=== PATIENT | female | born 1990 | race Caucasian/White ===

== ENCOUNTER → 2016-08-10 | Outpatient (CLI) | payer OTHER ==
[~2016-08-10] MED LIST: ACET50TA PO; ANUS2.5C2 TOP; COLA100C3 PO; GAVICHW PO; IBUP-1114 PO; MOM30SS PO; MULTIVIT OR; NASONEX; PERC7.5T12 PO; PREV15CA OR; TIGA300C OR; VICO5TAB OR; ZOFR4SOL PO; elestat OU
--- NOTE | 2016-08-10 19:16 | REP ---
MRI LEFT KNEE: TECHNIQUE: Axial proton density fat saturation, sagittal proton density T2 STIR, water excitation, coronal proton density, proton density fat saturation. The menisci appear intact. There is a high grade tear of the reconstructed anterior cruciate ligament. There is increased signal on T2-weighted images extending through virtually the entire thickness of that structure near the entrance into the femoral tunnel. The posterior cruciate ligament is intact. The collateral ligaments are intact. The medial and lateral patellar retinacula are intact. There are surgical screws in the medial femoral condyle and medial patellar facet. No osteochondral defect is seen. There is no bone marrow edema or occult fracture. There is a small joint effusion. There is no popliteal cyst. IMPRESSION: High grade tear of the reconstructed anterior cruciate ligament. Menisci are intact. Small joint effusion. Signed by Livan Booth MD 08/10/2016 07:50 P
== END ==
LOC: M RAD 16:34
PROVIDERS: ATTEND Physician Assistant Surgical
DX: M17.12 Unilateral primary osteoarthritis, left knee (principal); M25.462 Effusion, left knee

== ENCOUNTER 2016-08-23 07:45 | Outpatient (RCR) | payer OTHER ==
[~2016-08-23 07:45] MED LIST changes: -COLA100C3 PO; +COLA100C5 PO
[2016-11-18] MEDS ORDERED: MIREIUD IU (07:50)
== END 2016-08-26 ==
LOC: M PT 07:45
PROVIDERS: ATTEND Physician Assistant Surgical
DX: Z51.89 Encounter for other specified aftercare (principal); M17.12 Unilateral primary osteoarthritis, left knee

== ENCOUNTER → 2016-09-26 | Outpatient (RCR) | payer OTHER ==
[~2016-09-26] MED LIST changes: +MIREIUD IU
== END ==
LOC: M PT 09-01 08:44
PROVIDERS: ATTEND Physician Assistant Surgical
DX: Z51.89 Encounter for other specified aftercare (principal); M17.12 Unilateral primary osteoarthritis, left knee

== ENCOUNTER 2016-10-13 08:10 | Outpatient (RCR) | payer OTHER ==
[~2016-10-13 08:10] MED LIST changes: -MIREIUD IU
[2016-11-18] MEDS ORDERED: MIREIUD IU (07:50)
== END 2016-10-27 ==
LOC: M PT 08:10
PROVIDERS: ATTEND Physician Assistant Surgical
DX: Z51.89 Encounter for other specified aftercare (principal); M17.12 Unilateral primary osteoarthritis, left knee

== ENCOUNTER 2016-12-02 06:31 | Day surgery (SDC) | payer OTHER ==
[~2016-12-02] VITALS: Ht 162.6 cm; Wt 77.1 kg
[~2016-12-02 06:31] MED LIST changes: +MIREIUD IU
[2016-12-02] MEDS ORDERED: LR 1,000 ML IV ONE (06:45)
[2016-12-02] MEDS ORDERED: LIDOCAINE 1% MDV 20ML VIAL As Ordered ONE (06:50)
[2016-12-02] MEDS ORDERED: MIDAZOLAM INJ 2 MG/2 ML VIAL (J2250) As Ordered ONE (07:08)
[2016-12-02] MEDS ORDERED: ROCURONIUM BROMIDE 50 MG/5 ML VIAL/SYRINGE As Ordered ONE (07:08)
[2016-12-02] MEDS ORDERED: KETOROLAC 60 MG/2 ML VIAL (J1885) As Ordered ONE (07:08)
[2016-12-02] MEDS ORDERED: PROPOFOL 200 MG/20 ML VIAL As Ordered ONE (07:08)
[2016-12-02] MEDS ORDERED: ONDANSETRON 4MG/2ML VIAL (J2405) As Ordered ONE ×2 (07:08→11:45)
[2016-12-02] MEDS ORDERED: dexameTHASONE 4 MG/ML 1ML VIAL (J1100) As Ordered ONE (07:08)
[2016-12-02] MEDS ORDERED: fentaNYL 100 MCG/2 ML INJECTION (J3010) As Ordered ONE (07:08)
[2016-12-02] MEDS ORDERED: ceFAZolin 1GM INJ (J0690) As Ordered ONE (07:18)
[2016-12-02] MEDS ORDERED: ROPIvacaine 0.5% 30 ML INJECTION (J2795) As Ordered ONE (07:18)
[2016-12-02] MEDS ORDERED: HYDROmorphone HCL 2 MG/ML 1ML VIAL (J1170) As Ordered ONE (08:25)
[2016-12-02] MEDS: PERCOCET 5MG/325MG TAB PO PRN ×2 (11:20→12:00)
[2016-12-02] MEDS ORDERED: PERCOCET 5MG/325MG TAB As Ordered ONE (11:25)
[2016-12-02] MEDS ORDERED: fentaNYL 100 MCG/2 ML INJECTION (J3010) IV PRN (12:00)
[2016-12-02] MEDS ORDERED: ONDANSETRON 4MG/2ML VIAL (J2405) IV PRN (12:00)
[2016-12-02] MEDS ORDERED: METOCLOPRAMIDE INJ 10MG/2ML VIAL (J2765) IV PRN (12:00)
[2016-12-02] MEDS ORDERED: LR 1,000 ML IV SCH (12:00)
[2016-12-02 13:40] VITALS: BP 97/51
--- NOTE | 2016-12-02 22:27 | RO ---
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 POSTPROCEDURE DIAGNOSES: Recurrent anterior cruciate ligament (ACL) ligament tear. Bucket handle lateral meniscus tear. OPERATIVE PROCEDURE: 1. Left knee revision, ACL reconstruction using a posterior tibial Allograft and a tightrope device with an 11 mm Bioscrew on the tibia with 9 mm femoral tunnel and a 10 mm tibial tunnel. 2. Left knee lateral meniscal repair using three Riddle Nephew FAST-FIX sutures. SURGEON: Effie Moreno MD CAR CONDITIONER: Amado aJra ANESTHESIA: General endotracheal tube anesthesia. COMPLICATIONS: None. FINDINGS: She had a grossly lax left knee with a positive pivot shift, positive Erika, full range of motion. Patellofemoral joint was stable. ESTIMATED BLOOD LOSS: DESCRIPTION OF PROCEDURE: Antibiotics were given intravenously preoperatively and a successful general endotracheal tube anesthetic was established. A tourniquet was placed on the left upper thigh and not inflated. The left lower extremity was carefully prepped and draped in the usual sterile fashion. Then after appropriate time out, the leg was elevated and the tourniquet was inflated. Insufflation portal was established superior and medially, scope was introduced anterolaterally, the working port was anteromedially. We introduced the arthroscope to explore the joint. The articular cartilage surfaces were found to be quite pristine. ACL graft was ruptured. Medial meniscus was not torn. The lateral meniscus, however, unstable large bucket handle tear. It was back to the rim. It was close to the white-white, but possibly white-red junction so I thought given her young age, it was worth an attempt at repair. Thus, at this point I debrided the bucket handle and then switched our visualization portal from anterolateral to anteromedial and had to redirect our anterolateral portal to allow direct access and angle of attack to the meniscal repair device insertion. I first attempted to use the Arthrex device. Three of those failed in terms of getting the sutures all tangled and they would not hold. Thus I resorted to using the Riddle Nephew FAST-FIX and I used three of those and they each worked. I placed posteriorly, one just posterior to the popliteal tendon and then one just lateral to the popliteal tendon using the two pass vertical mattress technique, first passing through the meniscus and the second passed through the capsule and then each suture was cinched down and the suture was cut. The meniscus was probed and found to be nice and secure. Photographs were taken. I then debrided the remnant of the anterior cruciate ligament. Then once that had been done, I made a small longitudinal incision laterally over the previous scar and dissected down to the tensor fascia. The tensor fascia was then divided and then I subperiosteally dissected around the lateral aspect of the femur to get good visualization and I did not find the old button, that is the tightrope button. After attempting to find it fairly diligently, but I did not want to dissect any further so at this point, the over the top femoral guide was placed and we changed are visualization portal to the anteromedial once again and had excellent visualization of the prior tunnel and placed the point of the over the top guided over the top of the tunnel and then the drill sleeve was placed over the lateral femoral cortex. It should be noteworthy that while I was doing this work on the femoral side, my construction administrative assistant, Mr. Amado Jara was working on the posterior tibial tendon Allograft which we obtained from the freezer and thawed on the back table under sterile saline soaked in antibiotics, then whipstitched either end of the tendon and the folded over construct fit snuggly through an 8.5, but easily through a 9, thus we elected to use a 9 mm on the femoral side. The previous tunnel was 8 mm. Once the FlipCutter came out in good position, I retroreamed to about a depth of 25 mm. The FiberStick was passed down the tunnel and then grafted out to the anterolateral portal. At this point, then I opened up the previous incision on the anteromedial surface of the proximal tibia and dissected down such that I could find the old graft bolt device and the old screw was removed with a screwdriver and then the graft bolt was removed in pieces with the rongeur after using the [place] elevator to try to remove it from the bone. Not all of it could be removed with this technique, thus I passed the guidepin up the tunnel, visualized it intra-articularly with arthroscope and then first used the coring reamer to break through and then used a sequential increased our diameter with the solid reamers from 8 to 9, up to 10 mm to eventually all of the plastic pieces removed. Had good bleeding bone in the tunnel. I copiously irrigated out the knee joint and used the shaver to remove any excess debris. Then I grabbed the passing sutures and passed them down through the anteromedial tunnel and then on the back table we loaded the tightrope device onto the posterior tibial Allograft. Then, the passing sutures were passed through the loop and pulled up into the knee and out through the lateral femoral cortex. Then, under direct visualization, the tightrope button was brought out and then flipped and pulled back with excellent purchase and then I advanced the graft with the white passing sutures up into the knee. Once it was secured, we cycled the knee in flexion and extension, and the graft appeared to be in good position. There was no impingement with extension. She actually hyperextended because of gross ligamentous laxity, but the graft felt to be reasonably isymmetric, thus I held the knee at about 20 degrees of flexion with a firm downward pressure on the proximal tibia for a posterior drawer applied and then we advanced an 11 x 28 Bioscrew up the tibial tunnel. Initially we were going to use a 10, but that had outdated and we had no choice but to use an 11. The 11 actually had excellent secure fixation of the graft and this eliminated her Erika and no longer she had a pivot shift. She had full flexion and extension on the table. The graft was nice and taut, symmetrically in both flexion and extension. Thus, I cut the ends of the graft short, closed the deep fascia over the screw, and then we let the tourniquet down at this point. Laterally I secured the tightrope with several backup sutures and then pulled the passing blue suture and then cut the limbs short. The tensor fascia was closed with interrupted 20 PDS sutures, subdermal tissues were closed in both wounds with interrupted #2-0 PDS sutures, skin was closed with mere, covered by Adaptic, dry sterile bulky dressing after ropivacaine had been placed. She was placed into her brace and then awakened from general endotracheal anesthesia after having tolerated the procedure well, transferred to the recovery room in stable condition. There were no intraoperative complications. She was then transferred to the recovery room in stable condition. There were no intraoperative complications. Mr. Amado Jara was critical to the success of this difficult revision surgery by helping to hold the knee in certain positions so I could perform a meniscus repair as well as pass the grafts and secure the graft appropriately, helped prepare the graft on the back table amongst many other tasks.
== END 2016-12-02 13:50 | disposition home or self-care (01) ==
LOC: M SDC 06:31
PROVIDERS: ATTEND Orthopaedic Surgery
DX: S83.512A Sprain of anterior cruciate ligament of left knee, initial encounter (principal); M17.12 Unilateral primary osteoarthritis, left knee; X58.XXXA Exposure to other specified factors, initial encounter; Y92.89 Other specified places as the place of occurrence of the external cause; Y99.9 Unspecified external cause status; Y93.9 Activity, unspecified; K21.9 Gastro-esophageal reflux disease without esophagitis; F41.9 Anxiety disorder, unspecified; F32.9 Major depressive disorder, single episode, unspecified
CPT/HCPCS: 29882; 29888; C1713; C1762; J0690; J1100; J1170; J1885; J2250; J2405; J2765; J2795; J3010

== ENCOUNTER 2017-01-25 14:30 | Outpatient (RCR) | payer OTHER, MEDICAID | END 2017-01-26 | LOC: M PT 14:30 | PROVIDERS: ATTEND Orthopaedic Surgery | DX: Z51.89 Encounter for other specified aftercare (principal); Z98.890 Other specified postprocedural states ==

== ENCOUNTER 2017-01-31 13:38 | Outpatient (RCR) | payer OTHER, MEDICAID | END 2017-02-26 | LOC: M PT 13:38 | DX: S83.512D Sprain of anterior cruciate ligament of left knee, subsequent encounter (principal) | CPT/HCPCS: 97110 ==

== ENCOUNTER 2017-02-28 11:36 | Outpatient (RCR) | payer OTHER, MEDICAID | END 2017-03-29 | LOC: M PT 11:36 | DX: Z51.89 Encounter for other specified aftercare (principal); Z98.890 Other specified postprocedural states | CPT/HCPCS: 97110 ==

== ENCOUNTER → 2017-06-15 | Outpatient (REF) | payer OTHER ==
[2017-06-15 13:16] LABS: CHLORIDE LEVEL 104 MEQ/L (98-107); POTASSIUM SERUM 4.3 MEQ/L (3.5-5.1); SODIUM LEVEL 140 MEQ/L (136-145)
[2017-06-15 13:42] LABS: ALBUMIN 4.4 GM/DL (3.2-5.2); ALBUMIN/GLOBULIN RATIO 1.47 (1.00-1.93); ALKALINE PHOSPHATASE 66 U/L (45-117); ALT/SGPT 18 U/L (12-78); ANION GAP 8 MEQ/L (8-16); AST/SGOT 16 U/L (7-37); BILIRUBIN,TOTAL 2.3 MG/DL (0.2-1.0); BLOOD UREA NITROGEN 8 MG/DL (7-18); CALCIUM LEVEL 9.6 MG/DL (8.5-10.1); CARBON DIOXIDE LEVEL 28 MEQ/L (21-32); CREATININE FOR GFR 0.84 MG/DL (0.55-1.30); GLOMERULAR FILTRATION RATE > 60.0 (>60); GLUCOSE, FASTING 71 MG/DL (70-100); THYROID STIMULATING HORMONE 0.965 uIU/ML (0.358-3.740); TOTAL PROTEIN 7.4 GM/DL (6.4-8.2)
== END ==
LOC: M SFHCPLAZ 10:32
DX: Z00.00 Encounter for general adult medical examination without abnormal findings (principal)

== ENCOUNTER → 2017-06-28 | Outpatient (CLI) | payer OTHER, MEDICAID | LOC: M RAD 07:09 | DX: R10.11 Right upper quadrant pain (principal) | CPT/HCPCS: 76705 ==

== ENCOUNTER → 2017-09-06 | Outpatient (CLI) | payer OTHER, MEDICAID ==
[~2017-09-06] MED LIST changes: -ACET50TA PO; -ANUS2.5C2 TOP; -COLA100C5 PO; +E-Z-GAS II EFFERVESCENT PACKET (SODIUM BICARB./CITRIC ACID/SIMETHICONE) As Ordered; +E-Z-HD 98% w/w 340GM SUSP BTL As Ordered; +E-Z-PAQUE 96% w/w SUSP 176GM BTL As Ordered; -GAVICHW PO; -IBUP-1114 PO; -MIREIUD IU; -MOM30SS PO; -MULTIVIT OR; -NASONEX; -PERC7.5T12 PO; -PREV15CA OR; -TIGA300C OR; -VICO5TAB OR; -ZOFR4SOL PO; -elestat OU
== END ==
LOC: M RAD 08:30
DX: R10.13 Epigastric pain (principal)
CPT/HCPCS: 74241

== ENCOUNTER → 2018-06-26 | Outpatient (RCR) | payer OTHER ==
[~2018-06-26] MED LIST changes: +ANUS2.5C2 TOP; +COLA100C5 PO; -E-Z-GAS II EFFERVESCENT PACKET (SODIUM BICARB./CITRIC ACID/SIMETHICONE) As Ordered; -E-Z-HD 98% w/w 340GM SUSP BTL As Ordered; -E-Z-PAQUE 96% w/w SUSP 176GM BTL As Ordered; +GAVICHW PO; +IBUP-1114 PO; +MAPA500T2 PO; +MIRE1IUD IU; +MOM30SS PO; +MULTIVIT OR; +NASONEX; +PERC7.5T12 PO; +PREV15CA OR; +TIGA300C OR; +VICO5TAB OR; +ZOFR4SOL PO; +elestat OU
== END ==
LOC: M PT 05-29 08:47
PROVIDERS: ATTEND Physician Assistant
DX: M25.062 Hemarthrosis, left knee (principal)

== ENCOUNTER 2018-07-12 09:15 | Outpatient (RCR) | payer OTHER | END 2018-07-27 | LOC: M PT 09:15 | PROVIDERS: ATTEND Physician Assistant | DX: M25.062 Hemarthrosis, left knee (principal) ==

== ENCOUNTER 2018-11-20 12:17 | Outpatient (RCR) | payer OTHER | END 2018-11-26 | LOC: M PT 12:17 | PROVIDERS: ATTEND Orthopaedic Surgery | DX: Z47.89 Encounter for other orthopedic aftercare (principal); Z98.890 Other specified postprocedural states; M25.562 Pain in left knee ==

== ENCOUNTER → 2018-12-17 | Outpatient (REF) | payer OTHER | LOC: M SMT 12:34 | PROVIDERS: ATTEND Advanced Practice Midwife | DX: Z12.4 Encounter for screening for malignant neoplasm of cervix (principal) ==

== ENCOUNTER → 2018-12-27 | Outpatient (RCR) | payer OTHER | LOC: M PT 11-27 13:51 | PROVIDERS: ATTEND Orthopaedic Surgery | DX: Z47.89 Encounter for other orthopedic aftercare (principal); Z98.890 Other specified postprocedural states; M25.562 Pain in left knee | CPT/HCPCS: 97032; 97110; G0283 ==

== ENCOUNTER 2019-01-22 10:12 | Outpatient (RCR) | payer MEDICAID, OTHER, SELFPAY | END 2019-01-26 | LOC: M PT 10:12 | PROVIDERS: ATTEND Physician Assistant | DX: Z47.89 Encounter for other orthopedic aftercare (principal) ==

== ENCOUNTER 2019-04-08 01:11 | Emergency (ER) | payer MEDICAID, OTHER ==
[2019-04-08] MEDS ORDERED: GABA-843 PO (01:31)
[2019-04-08] MEDS ORDERED: DULO1CAP4 PO (01:31)
[2019-04-08 01:48] LABS: BASO % 0.2 % (0.0-1.0); EOS # 0.2 10^3/uL (0.0-0.5); EOS % 1.1 % (0.0-3.0); HEMATOCRIT 39.6 % (36.0-47.0); HEMOGLOBIN 13.2 g/dl (12.0-15.5); LYMPH # 0.9 10^3/uL (1.5-5.0); LYMPH % 6.1 % (24.0-44.0); MEAN CORPUSCULAR HEMOGLOBIN 30.1 pg (27.0-33.0); MEAN CORPUSCULAR HGB CONC 33.3 g/dl (32.0-36.5); MEAN CORPUSCULAR VOLUME 90.2 fl (80.0-96.0); MONO % 6.4 % (0.0-5.0); NEUTROPHILS # 12.9 10^3/uL (1.5-8.5); NEUTROPHILS % 85.9 % (36.0-66.0); PLATELET COUNT, AUTOMATED 192 10^3/uL (150-450); RED BLOOD COUNT 4.39 10^6/uL (4.00-5.40); WHITE BLOOD COUNT 14.9 10^3/uL (4.0-10.0)
[2019-04-08 02:22] LABS: ALBUMIN 4.3 GM/DL (3.2-5.2); ALT/SGPT 18 U/L (12-78); BILIRUBIN,DIRECT 0.3 MG/DL (0.0-0.2); BILIRUBIN,TOTAL 1.8 MG/DL (0.2-1.0); BLOOD UREA NITROGEN 13 MG/DL (7-18); CARBON DIOXIDE LEVEL 27 MEQ/L (21-32); CHLORIDE LEVEL 109 MEQ/L (98-107); CREATININE FOR GFR 0.81 MG/DL (0.55-1.30); GLOMERULAR FILTRATION RATE > 60.0 (>60); GLUCOSE, FASTING 87 MG/DL (70-100); LIPASE 129 U/L (73-393); POTASSIUM SERUM 4.1 MEQ/L (3.5-5.1); SODIUM LEVEL 141 MEQ/L (136-145)
[2019-04-08 02:36] LABS: HCG, SERUM QUALITATIVE NEGATIVE (NEGATIVE)
[2019-04-08] MEDS ORDERED: ISOVUE-370 76% 100ML VIAL (Q9967) As Ordered ONE (03:41)
[2019-04-08] MEDS ORDERED: METOCLOPRAMIDE INJ 10MG/2ML VIAL (J2765) IV ONE (03:45)
[2019-04-08] MEDS ORDERED: NS 1,000 ML IV ONE (03:45)
[2019-04-08] MEDS ORDERED: MORPHINE 4 MG/ML 1ML VIAL/SYRINGE (J2270) IV ONE (03:45)
[2019-04-08 04:07] VITALS: BP 99/55
--- NOTE | 2019-04-08 04:40 | REPVR ---
PROCEDURE INFORMATION: Exam: CT Abdomen And Pelvis With Contrast Exam date and time: 04/08/2019 4:07 AM Age: 28 years old Clinical indication: Abdominal pain; Generalized TECHNIQUE: Imaging protocol: Computed tomography of the abdomen and pelvis with intravenous contrast. Radiation optimization: All CT scans at this facility use at least one of these dose optimization techniques: automated exposure control; mA and/or kV adjustment per patient size (includes targeted exams where dose is matched to clinical indication); or iterative reconstruction. Contrast material: ISOVUE 370; Contrast volume: 100 ml; Contrast route: IV; COMPARISON: CT ABD PELVIS W/O CONTRAST 09/14/2012 12:34 PM FINDINGS: Liver: The liver attenuation is 111 Hounsfield units and the spleen is 134 Hounsfield units. Gallbladder and bile ducts: Soft tissue nodule or node adjacent to the gallbladder between the duodenal bulb and the gallbladder measuring 1.7 x 1.4 x 2.4 cm which is unchanged from the prior study. Pancreas: Normal. No ductal dilation. Spleen: Normal. No splenomegaly. Adrenals: Normal. No mass. Kidneys and ureters: Normal. No hydronephrosis. Stomach and bowel: The colon from the proximal transverse colon is collapsed or contracted with question of slight wall thickening. Nondilated fluid-filled small bowel in the lower abdomen and pelvis which is nonspecific. No significant air-fluid levels. Appendix: There are no changes of appendicitis. A normal appendix is not seen. Intraperitoneal space: Unremarkable. No free air. No significant fluid collection. Vasculature: Unremarkable. No abdominal aortic aneurysm. Lymph nodes: Unremarkable. No enlarged lymph nodes. Bladder: Unremarkable as visualized. Reproductive: There is an IUD in the uterus. Bones/joints: Unremarkable. No acute fracture. Soft tissues: Unremarkable. IMPRESSION: 1. Question of minimal nonspecific left colitis, increased since the prior study of 09/14/2012. 2. IUD in the uterus which is new. 3. Soft tissue nodule or lymph node adjacent to the gallbladder measuring 1.7 x 1.4 x 2.4 cm which is unchanged. 4. Otherwise negative CT abdomen/pelvis. Electronically signed by: Jacinto Alonzo On 04/08/2019 04:39:48 AM
[2019-04-08] MEDS ORDERED: REGL10TA6 PO (04:54)
[2019-04-08] MEDS ORDERED: AZITHROMYCIN 250 MG TAB PO ONE (05:00)
== END 2019-04-08 05:17 | disposition home or self-care (01) ==
LOC: M ED 01:11
DX: K52.9 Noninfective gastroenteritis and colitis, unspecified (principal); K82.8 Other specified diseases of gallbladder; F41.9 Anxiety disorder, unspecified; F33.9 Major depressive disorder, recurrent, unspecified; R63.0 Anorexia; F17.210 Nicotine dependence, cigarettes, uncomplicated; Z97.5 Presence of (intrauterine) contraceptive device; Z88.5 Allergy status to narcotic agent; Z79.899 Other long term (current) drug therapy
CPT/HCPCS: 74177; 80048; 80076; 81001; 83690; 84703; 85025; 87086; 96361; 96374; 96375; 99284; J2270; J2765; Q9967

== ENCOUNTER → 2019-11-19 | Outpatient (REF) | payer OTHER ==
[~2019-11-19] MED LIST changes: +DULO1CAP4 PO; +GABA-843 PO; +REGL10TA6 PO
== END ==
LOC: M SFHCPLAZ 17:23
PROVIDERS: ATTEND Nurse Practitioner Adult Health
DX: R30.0 Dysuria (principal)

== ENCOUNTER → 2020-01-14 | Outpatient (CLI) | payer OTHER | LOC: M LABSMTC 12:00 | PROVIDERS: ATTEND Family Medicine | DX: Z20.828 Contact with and (suspected) exposure to other viral communicable diseases (principal) ==

== ENCOUNTER → 2020-01-14 | Outpatient (REF) | payer OTHER | LOC: M SFHCPLAZ 13:14 | PROVIDERS: ATTEND Nurse Practitioner Adult Health | DX: R19.7 Diarrhea, unspecified (principal) ==

== ENCOUNTER → 2020-01-14 | Outpatient (CLI) | payer OTHER ==
[2020-01-14 16:35] LABS: HEMOGLOBIN 12.1 g/dl (12.0-15.5); MEAN CORPUSCULAR HEMOGLOBIN 30.1 pg (27.0-33.0); MEAN CORPUSCULAR HGB CONC 32.7 g/dl (32.0-36.5); PLATELET COUNT, AUTOMATED 202 10^3/uL (150-450); RED BLOOD COUNT 4.02 10^6/uL (4.00-5.40); WHITE BLOOD COUNT 5.9 10^3/uL (4.0-10.0)
[2020-01-14 17:02] LABS: ALT/SGPT 19 U/L (12-78); BILIRUBIN,TOTAL 0.5 MG/DL (0.2-1.0); BLOOD UREA NITROGEN 9 MG/DL (7-18); CALCIUM LEVEL 8.9 MG/DL (8.5-10.1); CARBON DIOXIDE LEVEL 28 MEQ/L (21-32); CHLORIDE LEVEL 109 MEQ/L (98-107); CREATININE FOR GFR 0.82 MG/DL (0.55-1.30); GLOMERULAR FILTRATION RATE > 60.0 (>60); GLUCOSE, FASTING 83 MG/DL (70-100); POTASSIUM SERUM 4.1 MEQ/L (3.5-5.1); SODIUM LEVEL 141 MEQ/L (136-145); TOTAL PROTEIN 6.7 GM/DL (6.4-8.2)
== END ==
LOC: M LAB 15:50
PROVIDERS: ATTEND Nurse Practitioner Adult Health
DX: R19.7 Diarrhea, unspecified (principal)

== ENCOUNTER → 2020-05-11 | Outpatient (CLI) | payer OTHER ==
[~2020-05-11] MED LIST changes: +BUSP1TAB PO; +GABA-282 PO; -GABA-843 PO
== END ==
LOC: M LABSMTC 11:47
PROVIDERS: ATTEND Family Medicine
DX: Z20.822 Contact with and (suspected) exposure to COVID-19 (principal)

== ENCOUNTER 2020-05-13 02:57 | Emergency (ER) | payer OTHER ==
[~2020-05-13] VITALS: Ht 165.1 cm; Wt 74.1 kg
[~2020-05-13 02:57] MED LIST changes: -BUSP1TAB PO
[2020-05-13] MEDS ORDERED: BUSP1TAB PO (03:10)
[2020-05-13] MEDS ORDERED: KETOROLAC 30 MG/ML 1ML VIAL IV ONE (03:40)
[2020-05-13] MEDS ORDERED: NS 1,000 ML IV ONE (03:40)
[2020-05-13] MEDS ORDERED: ONDANSETRON 4MG/2ML VIAL IV ONE (03:40)
[2020-05-13] MEDS ORDERED: ISOVUE-370 76% 100ML VIAL As Ordered ONE (03:44)
[2020-05-13 04:11] LABS: BASO % 0.2 % (0.0-1.0); EOS # 0.1 10^3/uL (0.0-0.5); EOS % 1.2 % (0.0-3.0); HEMATOCRIT 38.1 % (36.0-47.0); LYMPH # 0.6 10^3/uL (1.5-5.0); LYMPH % 6.6 % (24.0-44.0); MEAN CORPUSCULAR HEMOGLOBIN 30.8 pg (27.0-33.0); MEAN CORPUSCULAR HGB CONC 34.1 g/dl (32.0-36.5); MEAN CORPUSCULAR VOLUME 90.3 fl (80.0-96.0); MONO # 0.6 10^3/uL (0.0-0.8); MONO % 7.5 % (2.0-8.0); NEUTROPHILS # 7.1 10^3/uL (1.5-8.5); NEUTROPHILS % 84.4 % (36.0-66.0); PLATELET COUNT, AUTOMATED 174 10^3/uL (150-450); RED BLOOD COUNT 4.22 10^6/uL (4.00-5.40); WHITE BLOOD COUNT 8.4 10^3/uL (4.0-10.0)
[2020-05-13 04:33] LABS: ALBUMIN 3.9 GM/DL (3.2-5.2); BILIRUBIN,DIRECT 0.4 MG/DL (0.0-0.2); TOTAL PROTEIN 6.8 GM/DL (6.4-8.2)
--- NOTE | 2020-05-13 05:32 | REPVR ---
PROCEDURE INFORMATION: Exam: CT Abdomen And Pelvis With Contrast Exam date and time: 05/13/2020 3:38 AM Age: 29 years old Clinical indication: Abdominal pain; Epigastric; Additional info: Epigastric pain, n/v/d TECHNIQUE: Imaging protocol: Computed tomography of the abdomen and pelvis with contrast. Radiation optimization: All CT scans at this facility use at least one of these dose optimization techniques: automated exposure control; mA and/or kV adjustment per patient size (includes targeted exams where dose is matched to clinical indication); or iterative reconstruction. Contrast material: ISO; Contrast volume: 100 ml; Contrast route: INTRAVENOUS (IV); COMPARISON: CT ABD/PEL W/IV CONTRAST ONLY 04/08/2019 3:56 AM FINDINGS: Mediastinal space: Air distention of the distal esophagus. Liver: Normal. No mass. Gallbladder and bile ducts: Oval smoothly marginated structure adjacent to the medial aspect of the neck of the gallbladder measures 2.4 cm and is similar to previous CT. Pancreas: Normal. No ductal dilation. Spleen: Normal. No splenomegaly. Adrenal glands: Normal. No mass. Kidneys and ureters: Normal. No hydronephrosis. Stomach and bowel: Partial fluid-filled small bowel in the pelvis. Mild fluid-filled small bowel left upper quadrant with irregularity of the mucosa. Appendix: The appendix is not visualized. Intraperitoneal space: Small amount of nonspecific free fluid in the pelvis. Vasculature: Unremarkable. No abdominal aortic aneurysm. Lymph nodes: Scattered mesenteric lymph nodes. Urinary bladder: Unremarkable as visualized. Reproductive: Intrauterine contraceptive device. Small involuting cyst right adnexa measures 1.1 cm. Bones/joints: Unremarkable. No acute fracture. Small area of sclerosis lower left rib. Soft tissues: Unremarkable. IMPRESSION: 1. Partial fluid-filled small bowel with accentuation of the mucosa left upper quadrant which could suggest reactive ileus or enteritis. 2. Small amount of free fluid in the pelvis is nonspecific. 3. Stable soft tissue nodule adjacent to the gallbladder which could reflect adjacent lymph node. 4. Scattered mesenteric lymph nodes are unchanged which could be reactive or reflective of mesenteric adenitis. Electronically signed by: Zara Pantoja On 05/13/2020 05:32:10 AM
[2020-05-13 05:45] VITALS: BP 91/54
[2020-05-13] MEDS ORDERED: ONDA4TAB6 PO (06:08)
== END 2020-05-13 06:21 | disposition home or self-care (01) ==
LOC: M ED 02:57
DX: K52.9 Noninfective gastroenteritis and colitis, unspecified (principal); R10.10 Upper abdominal pain, unspecified; I88.0 Nonspecific mesenteric lymphadenitis; F41.9 Anxiety disorder, unspecified; F33.9 Major depressive disorder, recurrent, unspecified; Z88.6 Allergy status to analgesic agent; Z97.5 Presence of (intrauterine) contraceptive device; Z79.899 Other long term (current) drug therapy
CPT/HCPCS: 74177; 80047; 80076; 83690; 84702; 85025; 96361; 96374; 96375; 99284; J1885; J2405; Q9967

== ENCOUNTER → 2020-07-08 | Outpatient (CLI) | payer OTHER ==
[~2020-07-08] MED LIST changes: +BUSP1TAB PO; +ONDA4TAB6 PO
[2020-07-08 18:24] LABS: ALBUMIN 4.1 GM/DL (3.2-5.2); ALT/SGPT 21 U/L (12-78); BILIRUBIN,DIRECT 0.3 MG/DL (0.0-0.2); BILIRUBIN,TOTAL 1.2 MG/DL (0.2-1.0); C REACTIVE PROTEIN QUANTITATIV < 0.30 MG/DL (0.00-0.30); FOLATE 12.3 NG/ML; FREE T4 0.77 NG/DL (0.76-1.46); THYROID STIMULATING HORMONE 0.892 uIU/ML (0.358-3.740); VITAMIN B12 LEVEL 342 PG/ML
== END ==
LOC: M LAB 17:18
PROVIDERS: ATTEND Internal Medicine Gastroenterology
DX: R19.7 Diarrhea, unspecified (principal)

== ENCOUNTER → 2020-07-17 | Outpatient (CLI) | payer OTHER | LOC: M LABSMTC 11:41 | PROVIDERS: ATTEND Anesthesiology | DX: Z20.828 Contact with and (suspected) exposure to other viral communicable diseases (principal); Z11.59 Encounter for screening for other viral diseases ==

== ENCOUNTER → 2020-07-21 | Day surgery (SDC) | payer OTHER ==
[~2020-07-21] VITALS: Ht 165.1 cm; Wt 72.1 kg
[~2020-07-21] MED LIST changes: +LIDOCAINE 2% 100MG/5ML SDV (FOR ANES.) As Ordered ONE; +NS 1,000 ML IV ONE; +propofoL 200 MG/20 ML VIAL As Ordered ONE
--- NOTE | 2020-07-21 12:18 | ROOR ---
Patient Name: Heaven Duncan Procedure Date: 07/21/2020 11:39 AM Date of : 1990 Age: 29 Room: [facility] Gender: Female Note Status: Finalized Procedure: Colonoscopy Indications: Abnormal CT of the GI tract, Change in bowel habits Providers: Scar Harrison MD Referring MD: Cathleen Boles NP Requesting Provider: Medicines: Monitored Anesthesia Care Complications: No immediate complications. Procedure: Pre-Anesthesia Assessment: - Prior to the procedure, a History and Physical was performed, and patient medications and allergies were reviewed. The patient is competent. The risks and benefits of the procedure and the sedation options and risks were discussed with the patient. All questions were answered and informed consent was obtained. Patient identification and proposed procedure were verified by the physician, the nurse and the anesthesiologist in the procedure room. Mental Status Examination: alert and oriented. Airway Examination: normal oropharyngeal airway and neck mobility. Respiratory Examination: clear to auscultation. CV Examination: normal. Prophylactic Antibiotics: The patient does not require prophylactic antibiotics. Prior Anticoagulants: The patient has taken no previous anticoagulant or antiplatelet agents. ASA Grade Assessment: II - A patient with mild systemic disease. After reviewing the risks and benefits, the patient was deemed in satisfactory condition to undergo the procedure. The anesthesia plan was to use monitored anesthesia care (MAC). Immediately prior to administration of medications, the patient was re-assessed for adequacy to receive sedatives. The heart rate, respiratory rate, oxygen saturations, blood pressure, adequacy of pulmonary ventilation, and response to care were monitored throughout the procedure. The physical status of the patient was re-assessed after the procedure. The Colonoscope was introduced through the anus and advanced to the terminal ileum, with identification of the appendiceal orifice and IC valve. The colonoscopy was performed without difficulty. The patient tolerated the procedure well. The quality of the bowel preparation was good. The terminal ileum, ileocecal valve, appendiceal orifice, and rectum were photographed. Scope insertion time was 2 minutes. Scope withdrawal time was 8 minutes. The total duration of the procedure was 10 minutes. Findings: The perianal and digital rectal examinations were normal. The terminal ileum appeared normal. The colon (entire examined portion) was mildly tortuous. Advancing the scope required straightening and shortening the scope to obtain bowel loop reduction. Normal mucosa was found in the entire colon. Biopsies for histology were taken with a cold forceps from the right colon, left colon and rectosigmoid colon for evaluation of microscopic colitis. Verification of patient identification for the specimen was done by the physician and nurse using the patient's name, date and medical record number. Non-bleeding external and internal hemorrhoids were found during retroflexion. The hemorrhoids were small. Impression: - The examined portion of the ileum was normal. - Tortuous colon. - Normal mucosa in the entire examined colon. Biopsied. - Non-bleeding external and internal hemorrhoids. Recommendation: - Patient has a contact number available for emergencies. The signs and symptoms of potential delayed complications were discussed with the patient. Return to normal activities tomorrow. Written discharge instructions were provided to the patient. - High fiber diet. - Continue present medications. - Use original regular Metamucil one tablespoon PO daily. - Await pathology results. - Repeat colonoscopy at age 52 for screening purposes. - Telephone GI clinic for pathology results in 2 weeks. - Return to GI clinic if persistent symptoms or new symptoms. - Return to primary care physician. Procedure Code(s): --- Professional --- 03920, Colonoscopy, flexible; with biopsy, single or multiple Diagnosis Code(s): --- Professional --- K64.8, Other hemorrhoids R19.4, Change in bowel habit R93.3, Abnormal findings on diagnostic imaging of other parts of digestive tract Q43.8, Other specified congenital malformations of intestine CPT copyright 2019 [employer]. All rights reserved. The codes documented in this report are preliminary and upon fence erector supervisor review may be revised to meet current compliance requirements. Scar Harrison MD Scar Harrison MD 07/21/2020 12:18:13 PM Electronically signed by Scar Harrison MD Number of Addenda: 0 Note Initiated On: 07/21/2020 11:39 AM Estimated Blood Loss: Estimated blood loss was minimal.
[2020-07-21 13:34] VITALS: BP 108/64
== END | disposition home or self-care (01) ==
LOC: M OPP 10:25
PROVIDERS: ATTEND Internal Medicine Gastroenterology
DX: Q43.8 Other specified congenital malformations of intestine (principal); K64.8 Other hemorrhoids; R93.3 Abnormal findings on diagnostic imaging of other parts of digestive tract; R19.4 Change in bowel habit; Z79.899 Other long term (current) drug therapy